=== PATIENT | female | born 1955 | race Caucasian/White ===

== ENCOUNTER 2021-05-01 06:00 | Outpatient (RCR) | payer MEDICARE, OTHER, SELFPAY | END 2021-05-28 23:59 | disposition home or self-care (01) | LOC: WPT 06:00 | PROVIDERS: Visit Provider Nurse Practitioner Family | DX: C55 Malignant neoplasm of uterus, part unspecified (principal); I89.0 Lymphedema, not elsewhere classified; G62.0 Drug-induced polyneuropathy; T45.1X5A Adverse effect of antineoplastic and immunosuppressive drugs, initial encounter; Z92.3 Personal history of irradiation; M25.551 Pain in right hip; M25.552 Pain in left hip | CPT/HCPCS: 97110; 97140; 97163; 97530 ==

== ENCOUNTER 2021-05-29 06:00 | Outpatient (RCR) | payer MEDICARE, OTHER, SELFPAY | END 2021-06-27 23:59 | disposition home or self-care (01) | LOC: WPT 06:00 | PROVIDERS: Visit Provider Nurse Practitioner Family | DX: C55 Malignant neoplasm of uterus, part unspecified (principal); I89.0 Lymphedema, not elsewhere classified; G62.0 Drug-induced polyneuropathy; T45.1X5A Adverse effect of antineoplastic and immunosuppressive drugs, initial encounter; Z92.3 Personal history of irradiation; M25.551 Pain in right hip; M25.552 Pain in left hip | CPT/HCPCS: 97110; 97112; 97140; 97530 ==

== ENCOUNTER 2022-07-22 11:55 | Outpatient (CLI) | payer MEDICARE, OTHER, SELFPAY ==
--- NOTE | 2022-07-22 | ECG_ITS ---
[facility] Test Date: 2022-07-22 Pat Name: Nani Mehta Department: Room: Gender: Female [employer]: : 1955 Requested By: Ana Sapp Order Number: [id number] Ernesto MD: Monika Gonzales M.D. Interpretive Statements NAME OF STUDY: TREADMILL STRESS TEST INDICATION: Shortness of Breath; Atypical Chest Pain PROCEDURE: At the baseline, the patient's blood pressure was 152/81 with a heart rate of 74. The baseline electrocardiogram showed normal sinus rhythm with normal ST-Ts.. The patient exercised for 6 minutes on a standard [place] protocol. Patient attained a maximum heart rate of 156 beats per minute(102% of the maximum predicted heart rate) with a blood pressure at the peak exercise of 196/57 mm Hg. The EKG at the peak exercise revealed no significant changes. Patient did not have any chest pain or any significant cardiac arrhythmias with the exercise During the recovery phase, there were no new changes. Blood pressure at the end of the recovery phase was 203/63 mm Hg with a heart rate of 89 per minute. CONCLUSION: 1. Normal EKG response to treadmill exercise 2. No exercise-induced chest pain or cardiac arrhythmia 3. Hypertensive response to exercise 3. Slightly impaired exercise tolerance, attained a maximum of 7.0 METs Electronically Signed On 07-27-2022 19:38:56 CDT by Monika Gonzales M.[email or web address]
[2022-07-22 12:57] VITALS: BMI 24.2
[2022-07-22 13:49] VITALS: BP 130/84; PULSE 82
== END 2022-07-22 11:56 | disposition home or self-care (01) ==
LOC: CDL 11:56
PROVIDERS: Family Provider Family Medicine; PCP Nurse Practitioner; Visit Provider Registered Nurse
DX: R07.9 Chest pain, unspecified (principal); R06.02 Shortness of breath
CPT/HCPCS: 93017